=== PATIENT | male | born 1950 | race Two or more races ===

== ENCOUNTER 2017-09-22 22:08 | Inpatient (IN) | payer OTHER ==
[~2017-09-22] VITALS: Ht 152.4 cm; Wt 81.6 kg
[~2017-09-22 22:08] MED LIST: ASPI-1152 PO; ATOR80TA PO; BENA20TA2 PO; GLIM4TAB2 PO; METF500T4 PO; METO-357 PO; OMEP20TA20 PO
[2017-09-23] MEDS ORDERED: ALBUTEROL FS 2.5 MG/0.5 ML VIAL.NEB NEB ONE (01:00)
[2017-09-23] MEDS ORDERED: ACETAMINOPHEN 325 MG TABLET PO ONE (01:00)
--- NOTE | 2017-09-23 01:00 | NUR ---
PT RECEIVED FROM HOME WITH FAMILY C/O FLU LIKE SYMPTOMS X2 DAYS AND UNABLE TO GET OUT OF BED SINCE 09/18/17. NO PAIN NOTED. EXPIRATORY WHEEZING UPON AUSCULTATION WITH NO SOB. A/OX4 UZBEK SPEAKING VSS NAD.
[2017-09-23] MEDS ORDERED: ALBUTEROL FS 2.5 MG/0.5 ML VIAL.NEB ONE ×2 (01:05→03:07)
--- NOTE | 2017-09-23 01:05 | NUR ---
TAX ASSISTANT AT BEDSIDE
[2017-09-23] MEDS ORDERED: ACETAMINOPHEN ES 500 MG TABLET ONE (01:19)
[2017-09-23 01:27] LABS: BASOPHILS % (AUTO) 0.8 % (0.0-2.0); EOSINOPHILS % (AUTO) 0.2 % (0.0-6.0); HEMATOCRIT 40 % (39-51); HEMOGLOBIN 13.8 g/dL (13.5-17.5); LYMPHOCYTES # (AUTO) 1.3 /CMM (0.8-4.8); LYMPHOCYTES % (AUTO) 28.2 % (20.0-44.0); MEAN CORPUSCULAR HEMOGLOBIN 30 PG (26.0-33.0); MEAN CORPUSCULAR HGB CONC 35 g/dl (31.0-36.0); MEAN CORPUSCULAR VOLUME 87 fL (80-96); MONOCYTES # (AUTO) 0.7 /CMM (0.1-1.30); NEUTROPHILS # (AUTO) 2.5 /CMM (1.8-8.9); NEUTROPHILS % (AUTO) 55.8 % (43.0-81.0); PLATELET COUNT (AUTO) 126 /CMM (150-450); RDW COEFFICIENT OF VARIATION 11.8 (11.5-15.0); RED BLOOD CELL COUNT(AUTO) 4.54 MIL/uL (4.5-6.0); WHITE BLOOD COUNT (AUTO) 4.5 K/uL (4.3-11.0)
[2017-09-23 01:46] LABS: CALCIUM, SERUM 8.7 mg/dL (8.5-10.1); CARBON DIOXIDE 25 mmol/L (21-32); CHLORIDE 104 mmol/L (98-107); CREATININE 0.8 mg/dL (0.6-1.3); GLUCOSE 211 mg/dL (74-106); POTASSIUM 3.9 mmol/L (3.5-5.1); SODIUM SERUM 137 mmol/L (136-145); UREA NITROGEN, BLOOD 18 mg/dL (7-18)
[2017-09-23 01:54] LABS: TROPONIN I < 0.017 ng/mL (0.00-0.056)
[2017-09-23 01:59] LABS: B-TYPE NATRIURETIC PEPTIDE 581 PG/ML (0-125)
--- NOTE | 2017-09-23 02:30 | NUR ---
TELE 320-1. GIVE REPORT TO BRANT
--- NOTE | 2017-09-23 02:54 | NUR ---
NARESH (DAUGHTER) PHONE: [phone]
[2017-09-23] MEDS ORDERED: IPRATROPIUM NEB FS 0.5 MG/2.5 ML AMPUL.NEB NEB SCH (03:00)
[2017-09-23] MEDS ORDERED: ALBUTEROL FS 2.5 MG/0.5 ML VIAL.NEB NEB PRN (03:00)
--- NOTE | 2017-09-23 03:05 | NUR ---
GAVE REPORT TO ALA IN [facility]
[2017-09-23] MEDS ORDERED: IPRATROPIUM NEB FS 0.5 MG/2.5 ML AMPUL.NEB ONE (03:07)
--- NOTE | 2017-09-23 03:15 | NUR ---
WILL TRANSFER AFTER BREATHING TX
[2017-09-23 03:30] VITALS: BP 118/54
[2017-09-23] MEDS ORDERED: MAG HYDROX/AL HYDROX/SIMETH 30 ML UDC PO PRN (03:30)
[2017-09-23] MEDS ORDERED: ONDANSETRON HCL/PF 4 MG/2 ML VIAL IVP PRN (03:30)
[2017-09-23] MEDS ORDERED: HYDROCODONE/APAP 5/325MG 1 EACH TABLET PO PRN (03:30)
[2017-09-23] MEDS ORDERED: ALBUTEROL FS 2.5 MG/3 ML VIAL.NEB NEB PRN (03:30)
[2017-09-23] MEDS ORDERED: Z GUARD REMEDY 2 OZ OINT TP PRN (03:30)
[2017-09-23] MEDS ORDERED: DEXTROSE 50%-WATER 50 ML DISP.SYRIN IV PRN (03:30)
[2017-09-23] MEDS ORDERED: MAGNESIUM HYDROXIDE 30 ML UDC PO PRN (03:30)
[2017-09-23] MEDS ORDERED: ZOLPIDEM TARTRATE 5 MG TABLET PO PRN (03:30)
[2017-09-23] MEDS ORDERED: ACETAMINOPHEN 325 MG TABLET PO PRN (03:30)
[2017-09-23] MEDS ORDERED: LORAZEPAM 1 MG TABLET PO PRN (03:30)
[2017-09-23] MEDS ORDERED: ENOXAPARIN SODIUM 40 MG/0.4 ML DISP.SYRIN SQ SCH (03:30)
[2017-09-23 04:00] VITALS: BP 118/54
--- NOTE | 2017-09-23 04:00 | NUR ---
RN OPENING NOTES RECEIVED PATIENT FROM ER IN STABLE CONDITION. ALERT AND ORIENTED X4, ST LUCI[place]/ TURKISH SPEAKING. PATIENT C/O FLU LIKE SYMPTOMS X2 DAYS AND UNABLE TO GET OUT OF BED SINCE 09/18/17. NO SOB NOTED. RESPIRATION EVEN AND UNLABORED. EXPIRATORY WHEEZING ON AUSCULTATION. IV ACCESS AT RIGHT AC PATENT AND INTACT, FLUSHING WELL WITH NS, NO REDNESS OR INFILTRATION NOTED. BS X4. ON NC 2L. SKIN INTACT. WAITING FOR MD ORDERS. BED IN LOW AND LOCKED POSITION. SIDE RAILSX2. CALL LIGHT WITHIN EASY REACH. WILL CONTINUE TO MONITOR AND ASSESS DURING THE SHIFT.
[2017-09-23] MEDS ORDERED: ENOXAPARIN SODIUM 40 MG/0.4 ML DISP.SYRIN SQ ONE (04:07)
[2017-09-23] MEDS ORDERED: LEVOFLOXACIN 500 MG /D5W 100ML 100 ML IV ONE (04:08)
[2017-09-23] MEDS: LEVOFLOXACIN 500 MG /D5W 100ML 500 MG in PREMIX 1 EA IV SCH (04:16)
[2017-09-23] MEDS: BLOOD SUGAR DIAGNOSTIC 1 EACH STRIP VI SCH ×4 (06:28→21:30)
[2017-09-23] MEDS: INSULIN REGULAR, HUMAN 100 UNIT/ML 3 ML VIAL SQ PRN ×3 (06:31→17:44)
--- NOTE | 2017-09-23 07:29 | NUR ---
RN CLOSING NOTES PATIENT IS SLEEPING IN BED, EASY TO AROUSE, ALERT AND ORIENTED X4, UPPER SORBIAN/ GIBRALTARIAN SPEAKING. NO SOB NOTED. RESPIRATION EVEN AND UNLABORED. EXPIRATORY WHEEZING ON AUSCULTATION. IV ACCESS AT RIGHT AC PATENT AND INTACT, NO REDNESS OR INFILTRATION NOTED. ON NC 2L. SKIN CLEAN AND DRY. ALL NEEDS ARE MET AND MEDICATIONS GIVEN PER MD ORDER. BED IN LOW AND LOCKED POSITION. SIDE RAILSX2. CALL LIGHT WITHIN EASY REACH. WILL ENDORSE TO RN DAY SHIFT FOR CARMINA.
--- NOTE | 2017-09-23 07:45 | NUR ---
RN OPENING NOTES RECEIVED PT. IN BED A&OX4. BREATHING UNLABORED ON OXYGEN AT 2L/MIN VIA NASAL CANNULA. NO S/S OF ACUTE DISTRESS. IV ACCESS ON RIGHT ANTECUBITAL SITE IS INTACT AND PATENT WITH SALINE FLUSH. BED IS IN LOWEST, AND LOCKED POSITION. 2 SIDE RAILS UP, AND INSTRUCTED PT. TO USE CALL LIGHT FOR ASSISTANCE. WILL CONTINUE TO ASSESS AND MONITOR.
[2017-09-23 08:00] VITALS: BP 128/78
[2017-09-23] MEDS: BENAZEPRIL HCL 20 MG TABLET PO SCH (09:57)
[2017-09-23] MEDS: METOPROLOL SUCCINATE 50 MG TAB.SR.24H PO SCH (09:58)
[2017-09-23] MEDS: ASPIRIN EC 81 MG TABLET.DR PO SCH (09:59)
[2017-09-23] MEDS: IPRATROPIUM NEB FS 0.5 MG/2.5 ML AMPUL.NEB NEB SCH ×2 (15:54→20:47)
[2017-09-23] MEDS: ALBUTEROL FS 2.5 MG/0.5 ML VIAL.NEB NEB SCH ×2 (15:54→20:48)
[2017-09-23 16:00] VITALS: BP 138/56
[2017-09-23] MEDS: NICOTINE PATCH (14MG) 14 MG PATCH.TD24 TD SCH (17:00)
--- NOTE | 2017-09-23 17:00 | NUR ---
RN NOTES AFTER PT.'S BREATHING TX. LUNG SOUNDS ON AUSCULTATION WERE WHEEZING THROUGHOUT. EMERGENCY SPECIALIST WAS NOTIFIED, AND ORDER WAS GIVEN TO ADMINISTER METHYLPREDNISOLONE 40 MG, IV TID. EXPLAINED TO EMERGENCY SPECIALIST PT. USE TO SMOKE 1/2 PACK A DAY AND FAMILY REQUESTED TO PROVIDE PT. WITH A PATCH TO HELP WITH URGE TO SMOKE. NEW ORDER WAS GIVEN FOR A NICOTINE 14 MG ORDERED.
--- NOTE | 2017-09-23 17:15 | NUR ---
RN NOTES PT. FAMILY CAME TO VISIT AND LEFT CONTACT INFORMATION DAUGHTER NARESH [phone], AND COUSIN VIDHYA [phone].
[2017-09-23] MEDS: methylPREDNISolone SOD SUCC 40 MG/ML VIAL IV SCH (17:51)
--- NOTE | 2017-09-23 18:20 | NUR ---
RN NOTES COLLECTED SPUTUM CULTURE, AND NOTIFIED LAB. PLACED SPUTUM CULTURE IN THE REFRIGERATOR READY FOR PICK - UP.
--- NOTE | 2017-09-23 19:29 | NUR ---
RN CLOSING NOTES RECEIVED PT. IN BED A&OX4. BREATHING UNLABORED ON OXYGEN AT 2L/MIN VIA NASAL CANNULA. NO S/S OF ACUTE DISTRESS. IV ACCESS ON RIGHT ANTECUBITAL SITE IS INTACT AND PATENT WITH SALINE FLUSH. BED IS IN LOWEST, AND LOCKED POSITION. 2 SIDE RAILS UP, AND INSTRUCTED PT. TO USE CALL LIGHT FOR ASSISTANCE. WILL ENDORSE REPORT TO NURSE.
--- NOTE | 2017-09-23 19:30 | NUR ---
MS RN OPENING NOTES: PATIENT IN BED, AOX4, ON O2 AT 2 LPM VIA NC, BREATHING EVEN AND UNLABORED, HOWEVER, PATIENT WAS NOTED TO HAVE WHEEZING. MAINTAINED HOB ELEVATED. PIV OVER RAC G 18 INTACT AND PATENT TO FLUSH. PROVIDED FOR COMFORT AND SAFETY. BED IN LOWEST AND LOCKED POSITION, SIDERAILS UP X 2, CALL LIGHT WITHIN REACH. WILL CONT TO MONITOR.
[2017-09-23 20:00] VITALS: BP 110/61
[2017-09-23 20:38] VITALS: BP 110/61
[2017-09-23] MEDS: ATORVASTATIN 40 MG TABLET PO SCH (21:26)
[2017-09-23] MEDS: ENOXAPARIN SODIUM 40 MG/0.4 ML DISP.SYRIN SQ SCH (21:28)
[2017-09-23] MEDS: *INSULIN REGULAR(HUMULIN R)HUM 100 UNIT/ML VIAL SQ PRN (21:32)
--- NOTE | 2017-09-23 21:40 | NUR ---
RN NOTES: BLOOD SUGAR CHECKED AT 240 MG/DL, ADMINISTERED 4 UNITS REGULAR INSULIN. GAVE LIGHT SNACK.
[2017-09-24] MEDS: IPRATROPIUM NEB FS 0.5 MG/2.5 ML AMPUL.NEB NEB SCH ×4 (01:20→20:03)
[2017-09-24] MEDS: ALBUTEROL FS 2.5 MG/0.5 ML VIAL.NEB NEB SCH ×4 (01:20→20:03)
[2017-09-24] MEDS: LEVOFLOXACIN 500 MG /D5W 100ML 500 MG in PREMIX 1 EA IV SCH (02:50)
[2017-09-24] MEDS: PANTOPRAZOLE 40 MG TABLET.DR PO SCH (06:40)
[2017-09-24] MEDS: BLOOD SUGAR DIAGNOSTIC 1 EACH STRIP VI SCH ×4 (06:41→22:00)
[2017-09-24] MEDS: INSULIN REGULAR, HUMAN 100 UNIT/ML 3 ML VIAL SQ PRN ×3 (06:50→17:40)
--- NOTE | 2017-09-24 07:25 | NUR ---
RN OPENING NOTES RECEIVED PT. IN BED A&OX4. BREATHING UNLABORED, AND EVENLY ON OXYGEN 2L/MIN. NO S/S OF ACUTE DISTRESS. IV FLUIDS AT BEDSIDE. RIGHT ANTECUBITAL IV SITE INTACT, AND PATENT. BED IS IN LOWEST, AND LOCKED POSITION. BOTH SIDE RAILS UP, AND INSTRUCTED PT. TO USE CALL LIGHT FOR ASSISTANCE. ALL NEEDS MET. WILL CONTINUE TO ASSESS AND MONITOR.
--- NOTE | 2017-09-24 07:30 | NUR ---
MS RN CLOSING NOTES: PATIENT IN BED, OX4, ON ROOM AIR AT THIS TIME, BREATHING EVEN AND UNLABORED, BUT STILL WITH WHEEZING NOTED. APPEARS CALM AND IN NO DISTRESS. PIV OVER RAC G 18 INTACT AND PATENT TO FLUSH. AM BLOOD SUGAR CHECKED AT 314 MG/DL, ADMINISTERED 12 U REGULAR INSULIN AC PER SCALE. DUE MEDS GIVEN, PROVIDED FOR COMFORT AND SAFETY. BED IN LOWEST AND LOCKED POSITION, SIDERAILS UP X2. ENDORSED TO AM RN FOR CARMINA.
[2017-09-24 08:00] VITALS: BP 112/61
[2017-09-24 08:05] LABS: BASOPHILS % (AUTO) 0.3 % (0.0-2.0); HEMATOCRIT 39 % (39-51); HEMOGLOBIN 13.7 g/dL (13.5-17.5); LYMPHOCYTES # (AUTO) 0.9 /CMM (0.8-4.8); LYMPHOCYTES % (AUTO) 17.9 % (20.0-44.0); MEAN CORPUSCULAR HEMOGLOBIN 31 PG (26.0-33.0); MEAN CORPUSCULAR HGB CONC 35 g/dl (31.0-36.0); MEAN CORPUSCULAR VOLUME 89 fL (80-96); MONOCYTES # (AUTO) 0.5 /CMM (0.1-1.30); NEUTROPHILS # (AUTO) 3.7 /CMM (1.8-8.9); NEUTROPHILS % (AUTO) 72.8 % (43.0-81.0); PLATELET COUNT (AUTO) 145 /CMM (150-450); RDW COEFFICIENT OF VARIATION 12.4 (11.5-15.0); WHITE BLOOD COUNT (AUTO) 5.1 K/uL (4.3-11.0)
[2017-09-24 08:27] LABS: CALCIUM, SERUM 9.1 mg/dL (8.5-10.1); CREATININE 0.8 mg/dL (0.6-1.3); MAGNESIUM 1.9 mg/dL (1.8-2.4); POTASSIUM 4.3 mmol/L (3.5-5.1)
[2017-09-24] MEDS: methylPREDNISolone SOD SUCC 40 MG/ML VIAL IV SCH ×2 (08:33→17:42)
[2017-09-24] MEDS: ASPIRIN EC 81 MG TABLET.DR PO SCH (08:33)
[2017-09-24] MEDS: METOPROLOL SUCCINATE 50 MG TAB.SR.24H PO SCH (08:34)
[2017-09-24] MEDS: BENAZEPRIL HCL 20 MG TABLET PO SCH (08:34)
[2017-09-24] MEDS: NICOTINE PATCH (14MG) 14 MG PATCH.TD24 TD SCH (08:36)
[2017-09-24 16:00] VITALS: BP 136/70
--- NOTE | 2017-09-24 19:30 | NUR ---
RN CLOSING NOTES PT. IS IN BED A&OX4, RECEIVING A BREATHING TREATMENT. BREATHING UNLABORED, AND EVENLY ON OXYGEN VIA MASK. NO S/S OF ACUTE DISTRESS. IV FLUIDS AT BEDSIDE. BED IS IN LOWEST, AND LOCKED POSITION. BOTH SIDE RAILS UP, AND INSTRUCTED PT. TO USE CALL LIGHT FOR ASSISTANCE. ALL NEEDS MET. WILL ENDORSE REPORT TO NURSE.
--- NOTE | 2017-09-24 19:30 | NUR ---
RN OPENING NOTES PATIENT RECEIVED IN BED, ALERT AND ORIENTED X 4, ABLE TO MAKE NEEDS KNOWN, VERBALLY RESPONSIVE, NO SOB NOTED, BREATHING EVEN AND UNLABORED. IN NO ACUTE DISTRESS NOTED. ALL PATIENT'S NEEDS ATTENDED TO. CALL LIGHT PLACED WITHIN EASY REACH. WILL CONTINUE TO MONITOR.
[2017-09-24 20:00] VITALS: BP 136/99
[2017-09-24] MEDS: ATORVASTATIN 40 MG TABLET PO SCH (22:06)
[2017-09-24] MEDS: ENOXAPARIN SODIUM 40 MG/0.4 ML DISP.SYRIN SQ SCH (22:09)
[2017-09-24] MEDS: *INSULIN REGULAR(HUMULIN R)HUM 100 UNIT/ML VIAL SQ PRN (22:58)
[2017-09-25] MEDS ORDERED: INSULIN REGULAR, HUMAN 100 UNIT/ML 10 ML VIAL IV ONE
[2017-09-25] MEDS: IPRATROPIUM NEB FS 0.5 MG/2.5 ML AMPUL.NEB NEB SCH ×2 (01:30→09:25)
[2017-09-25] MEDS: ALBUTEROL FS 2.5 MG/0.5 ML VIAL.NEB NEB SCH ×2 (01:30→09:25)
--- NOTE | 2017-09-25 02:26 | NUR ---
RN NOTES SPOKE WITH DR. ESTRADA, INFORMED MD THAT REG INSULIN VIA IV CANNOT BE ADMINISTERED IN UNIT AND PROTOCOL WAS FOLLOWED FOR ELEVATED BLOOD SUGAR. MD WITH NEW ORDER TO D/C 14 UNITS REG INSULIN IV ORDER, TO MODIFY DIET TO CCHO AND TO GIVE REGULAR INSULIN PER HS SLIDING SCALE. ALL ORDERS NOTED AND CARRIED OUT.PATIENT IS ALERT AND ORIENTED X 4, IN NO ACUTE DISTRESS. WILL CONTINUE TO MONITOR PT.
[2017-09-25] MEDS: LEVOFLOXACIN 500 MG /D5W 100ML 500 MG in PREMIX 1 EA IV SCH (02:40)
[2017-09-25] MEDS: *INSULIN REGULAR(HUMULIN R)HUM 100 UNIT/ML VIAL SQ PRN (02:47)
[2017-09-25] MEDS: INSULIN REGULAR, HUMAN 100 UNIT/ML 3 ML VIAL SQ PRN (06:19)
[2017-09-25] MEDS: BLOOD SUGAR DIAGNOSTIC 1 EACH STRIP VI SCH ×2 (06:20→12:00)
--- NOTE | 2017-09-25 07:30 | NUR ---
RN CLOSING NOTES PATIENT IN BED, ALERT AND ORIENTED X 4, NO C/O PAIN AT THIS TIME, NO SOB, BREATHING EVEN AND UNLABORED, IN NO ACUTE DISTRESS. ALL PATIENT'S NEEDS ATTENDED TO. CALL LIGHT PLACED WITHIN EASY REACH. WILL ENDORSE TO DAY NURSE FOR CONTINUITY OF CARE.
[2017-09-25 08:00] VITALS: BP 120/65
--- NOTE | 2017-09-25 08:12 | NUR ---
MS RN OPENING NOTE RECEIVED BEDSIDE SBAR REPORT ON THE PATIENT. PATIENT IS A/O X3, ASLEEP, EASILY AWAKEN. CHEST IS RISING EQUALLY BILATERALLY. NO S/S OF DISTRESS. SPO2 IS 98% ON ROOM AIR. ALL NEEDS ARE MET AT THIS TIME. PATIENT IS IN BED. BED IS LOCKED IN THE LOWEST POSITION, SIDE RAILS UP X2. CALL LIGHT WITHIN REACH. PATIENT EDUCATED TO USE THE CALL LIGHT TO CALL FOR ASSISTANCE. PATIENT VERBALIZED UNDERSTANDING. WILL CONTINUE TO ASSESS/MONITOR THROUGHOUT THE SHIFT.
[2017-09-25] MEDS: BENAZEPRIL HCL 20 MG TABLET PO SCH (09:21)
[2017-09-25] MEDS: ASPIRIN EC 81 MG TABLET.DR PO SCH (09:21)
[2017-09-25 09:22] VITALS: BP 112/72
[2017-09-25] MEDS: METOPROLOL SUCCINATE 50 MG TAB.SR.24H PO SCH (09:22)
[2017-09-25] MEDS: PANTOPRAZOLE 40 MG TABLET.DR PO SCH (09:22)
[2017-09-25] MEDS: methylPREDNISolone SOD SUCC 40 MG/ML VIAL IV SCH (09:23)
[2017-09-25] MEDS: NICOTINE PATCH (14MG) 14 MG PATCH.TD24 TD SCH (09:23)
--- NOTE | 2017-09-25 11:39 | NUR ---
TWO MEDICATIONS NOT ACKNOWLEDGED/ADMINISTERED BY THE PREVIOUS SHIFT. DOCUMENTING NON-ADMINISTERED TO AVOID PASSED DUE REMAINDER IN THE EMAR.
[2017-09-25] MEDS ORDERED: LEVO500T2 PO (11:48)
[2017-09-25] MEDS ORDERED: ALBU18HF2 INH (11:48)
[2017-09-25] MEDS ORDERED: PRED20TA PO (11:48)
--- NOTE | 2017-09-25 12:19 | NUR ---
PATIENT REFUSED BLOOD GLUCOSE MONITORING
--- NOTE | 2017-09-25 13:11 | NUR ---
MS TRANSPORTATION WORKER NURSE Discharge order received. discharge education provided via teach back method. patient verbalized understanding. discharge papers given to the patient. iv catheter removed with the tip intact. Oclusive dressing applied. All belongings are accounted for. VS WNL. Denies pain/discomfort at this time. Patient left the unit in stable condition. Patient is leaving the hospital via private car accompanied by the daughter.
[2017-09-25] MEDS ORDERED: LEVOFLOXACIN (500MG) 500 MG TABLET PO SCH (22:00)
== END 2017-09-25 13:10 | disposition home or self-care (01) | DRG 140 ==
LOC: ER 22:14 → TELE 09-23 02:37 → MED 09-23 05:17
PROVIDERS: ADMIT Internal Medicine; ATTEND Internal Medicine
DX: J44.0 Chronic obstructive pulmonary disease with (acute) lower respiratory infection (principal); J15.9 Unspecified bacterial pneumonia; D69.6 Thrombocytopenia, unspecified; J44.1 Chronic obstructive pulmonary disease with (acute) exacerbation; I10 Essential (primary) hypertension; E11.9 Type 2 diabetes mellitus without complications; K21.9 Gastro-esophageal reflux disease without esophagitis; Z79.84 Long term (current) use of oral hypoglycemic drugs; E78.5 Hyperlipidemia, unspecified; I25.10 Atherosclerotic heart disease of native coronary artery without angina pectoris; Z95.1 Presence of aortocoronary bypass graft; Z79.82 Long term (current) use of aspirin; Z79.899 Other long term (current) drug therapy; Z72.0 Tobacco use; I51.7 Cardiomegaly
CPT/HCPCS: 36415; 71045-TC; 80048-TC; 82945-TC; 82962-TC; 83605-TC; 83735-TC; 83880; 84100-TC; 84484-TC; 85025-TC; 87040-TC; 87070-TC; 87081-TC; 87400; 94799-TC; A4216; A4606; J1650; J1815; J1956; J2920; Z7610